=== PATIENT | male | born 1995 ===

== ENCOUNTER 2021-12-22 12:28 | Outpatient (REF) | payer OTHER, SELFPAY ==
--- NOTE | 2021-12-30 16:14 | MHC.AU.ANO ---
Adult Audiological Evaluation Date of Visit: 12/22/21 Change Management Facilitator Used: Not Applicable Reason for Appointment: Audiologic evaluation due to difficulty understanding speech. Frankie is accompanied by his mother today and they report Frankie often asks for speech to be repeated and increases the level of his music. He is experiencing more difficulty at work due to the clear plastic barriers and when people wear masks. Does patient feel they have a hearing loss?: Yes If Yes, Which Ear?: Both Ears When Was Hearing Difficulty First Noticed?: 2 years ago Has hearing been tested previously?: No Hearing Handicap Inventory: HHIE SCORE: 12 Based on HHIE score, patient has: Mild to moderate perceived hearing handicap Ear History: Family History of Hearing Loss?: Yes Ear Infections in Childhood: Both Ears History of Ear Wax Buildup: Both Ears Blocked/Full Sensation in Ear(s): occasionally after showering History of occupational noise exposure?: No History: No Medical History: Medical History: High Blood Pressure Medication List: Clomipramine, Busbar, Allertec, Melatonin Otoscopy: Right Ear: Non-occluding cerumen Left Ear: Non-occluding cerumen Tympanometry: Tympanometry performed due to: To assess integrity of the middle ear system Right Ear: Normal Middle Ear System (Type A) Left Ear: Normal Middle Ear System (Type A) Otoacoustic Emissions Frequency Range Used: 1.6-8 kHz Right Ear Results: Present Emissions Analysis: Present emissions suggest normal cochlear function Rules out peripheral hearing loss greater than a mild degree Left Ear Results: Present Emissions Analysis: Present emissions suggest normal cochlear function Rules out peripheral hearing loss greater than a mild degree Hearing Evaluation: Transducer(s) Used: Insert Earphones Method: Conventional Audiometry Stimuli Used: Pure Tones Right Ear: Description of Hearing: Normal hearing thresholds 250-8000 Hz Left Ear: Description of Hearing: Normal hearing thresholds 250-8000 Hz Speech Recognition Threshold (SRT): Method Used: Monitored Live Voice Stimuli Used: Spondee Words Right Ear: 0 dB HL Left Ear: 0 dB HL Word Discrimination: Method: Recorded Lists Word Lists Used: NU-6 Right Ear: 100% at 50 dB HL Left Ear: 100% at 50 dB HL BKB-SIN: Binaural Jonwex-ls-Wzwep Test with +8 dB [id number]-it-[id number] ratio: 100% speech understanding with background noise present in this controlled test environment Interpretation of Results: Discussed how the quality of speech becomes muffled when the speaker is wearing a face mask and/or speaking from the other side of a barrier, as well as the difference between hearing vs listening and how attention influences these skills. Also discussed how anti-anxiety medications may slow down the auditory system response which can slow down auditory processing speed and cause reduced speech understanding ability. Recommendations: No further audiological action is indicated at this time. Diagnosis: Primary Diagnosis: H93.293 (Concern of) Abnormal Auditory Perception Services Performed: Pure Tone- Air (CPT 63689) Speech Audiometry Threshold, with Speech Recognition (CPT 77340) Diagnostic Otoacoustic Emissions (CPT 18870, 26+TC) Tympanometry (CPT 98756) Signature: Provider: Iraj Haynes, CCC-A
== END 2021-12-22 12:29 | disposition home or self-care (01) ==
LOC: HO.SH 12:28
PROVIDERS: Visit Provider Nurse Practitioner Family
DX: Z01.118 Encounter for examination of ears and hearing with other abnormal findings (principal); H93.293 Other abnormal auditory perceptions, bilateral
CPT/HCPCS: 92552; 92556; 92567; 92588